=== PATIENT | male | born 1935 | race Caucasian/White ===

== ENCOUNTER → 2024-03-25 06:40 | Outpatient (REF) | payer OTHER, SELFPAY ==
[2024-03-25] MEDS: LEXISCAN 0.400000000000000022 MG IV (08:39)
== END ==
LOC: RCS 06:40
PROVIDERS: ATTENDING PHYSICIAN Internal Medicine Cardiovascular Disease; FAMILY PHYSICIAN Internal Medicine Geriatric Medicine
DX: Z95.1 Presence of aortocoronary bypass graft (principal); Z01.818 Encounter for other preprocedural examination
CPT/HCPCS: 78452; 93017; A9500; J2785

== ENCOUNTER → 2024-03-27 11:06 | Outpatient (REF) | payer OTHER, SELFPAY | LOC: RCS 11:06 | PROVIDERS: ATTENDING PHYSICIAN Internal Medicine Cardiovascular Disease; FAMILY PHYSICIAN Internal Medicine Geriatric Medicine | DX: I35.0 Nonrheumatic aortic (valve) stenosis (principal); Z95.1 Presence of aortocoronary bypass graft; I48.0 Paroxysmal atrial fibrillation | CPT/HCPCS: 93306 ==